=== PATIENT | female | born 1995 | race Caucasian/White ===

== ENCOUNTER 2022-09-15 03:00 | Emergency (ER) | payer MEDICAID ==
[~2022-09-15] VITALS: Ht 167.6 cm; Wt 81.6 kg
[2022-09-15 03:09] VITALS: BP_SYST 107
[2022-09-15] MEDS ORDERED: ACETAMINOPHEN 500 MG TABLET PO ONE (03:45)
[2022-09-15] MEDS ORDERED: CYCLOBENZAPRINE HCL 10 MG TABLET (FLEXERIL) PO ONE (03:45)
[2022-09-15] MEDS ORDERED: GABAPENTIN 100 MG CAPSULE PO ONE (03:45)
[2022-09-15] MEDS ORDERED: ACET-2634 PO (03:54)
[2022-09-15] MEDS ORDERED: LIDO700A30 TP (03:54)
[2022-09-15] MEDS ORDERED: CYCL10TA24 PO (03:54)
[2022-09-15] MEDS ORDERED: NEU300 PO (03:54)
[2022-09-15] MEDS ORDERED: IBUP-1969 PO (03:54)
[2022-09-15 05:16] VITALS: BP_SYST 107
== END 2022-09-15 05:16 | disposition home or self-care (01) ==
LOC: SED 03:00
DX: M54.31 Sciatica, right side (principal); M54.50 Low back pain, unspecified; M79.661 Pain in right lower leg; Z79.899 Other long term (current) drug therapy
CPT/HCPCS: 99283